=== PATIENT | female | born 1990 | race Caucasian/White ===

== ENCOUNTER → 2020-10-11 07:50 | Outpatient (CLI) | payer OTHER, SELFPAY ==
[2020-10-11] MEDS: COVID-19 VACC(MODERNA-1)/PF 100 MCG/0.5 ML VIAL IM (07:58)
== END ==
PROVIDERS: Visit Provider Internal Medicine
DX: Z23 Encounter for immunization (principal)
CPT/HCPCS: 0011A; 91301

== ENCOUNTER → 2020-11-08 07:34 | Outpatient (CLI) | payer OTHER, SELFPAY ==
[2020-11-08] MEDS: COVID-19 VACC #2, MRNA(MOD) 100 MCG/0.5 ML VIAL IM (07:40)
== END ==
PROVIDERS: Visit Provider Internal Medicine
DX: Z23 Encounter for immunization (principal)
CPT/HCPCS: 0012A; 91301